=== PATIENT | male | born 1940 | race Caucasian/White ===

== ENCOUNTER 2018-02-14 17:49 | Emergency (ER) | payer MEDICARE, BC ==
[2018-02-14] MEDS ORDERED: Sodium Chloride 0.9% 1,000 ML IV SCH (18:15)
[2018-02-14] MEDS ORDERED: cefTRIAXone 1 GM in Sodium Chloride 0.9% 50 ML IV ONE (18:34)
--- NOTE | 2018-02-14 18:40 | EDM.PDOC ---
ED HPI GENERAL MEDICAL PROBLEM - General Chief Complaint: General Stated Complaint: NAUSEA AND VOMITING Time Seen by Provider: 02/14/18 18:20 Source of Information: Reports: Patient, Family, RN History Limitations: Reports: No Limitations - History of Present Illness INITIAL COMMENTS - FREE TEXT/NARRATIVE: 78 yr male presents with cough, sore throat, abdominal pain, diarrhea and not eating for about 2 weeks. States [place] He is from [place] and is here fishing with his brothers for about 2 weeks. States he hasn't taken his medication for about 2 weeks. He does take Plavix, ASA and rosuvastatin, history of 5 heart attack and stents. Pt is sleepy but alert at times and oriented. Brothers state he has been good on/off for the last few days. EKG shows sinus rhythm w premature supraventricular complexes with occasional premature ventricular complexes in bigeminy, Left BBB, left axis deviation. Heart rate on admit in 30's. ED ROS GENERAL - Review of Systems Review Of Systems: See Below Constitutional: Reports: Fever, Malaise HEENT: Reports: Eye Discharge, Throat Pain Respiratory: Reports: Cough Cardiovascular: Denies: Chest Pain, Edema GI/Abdominal: Reports: Abdominal Pain, Diarrhea, Vomiting Musculoskeletal: Reports: No Symptoms Skin: Reports: No Symptoms Neurological: Reports: No Symptoms Psychiatric: Reports: No Symptoms ED EXAM, GENERAL - Physical Exam Exam: See Below Exam Limited By: Altered Mental Status (some confusion) General Appearance: Alert, WD/WN, Mild Distress, Other (weak) Eye Exam: Bilateral Eye: PERRL (yellow exudate to lashes) Ears: Hearing Loss Nose: Normal Inspection Throat/Mouth: Normal Inspection, Normal Lips, Normal Voice, No Airway Compromise Head: Atraumatic, Normocephalic Neck: Normal Inspection, Supple, Non-Tender Respiratory/Chest: Decreased Breath Sounds, Crackles Cardiovascular: No Edema, Bradycardia, Extra Beats, Other (palpable heart rate irregular,bradycardia) GI/Abdominal: Soft, Non-Tender Back Exam: Muscle Spasm. No: Paraspinal Tenderness, Vertebral Tenderness Extremities: Normal Inspection, Non-Tender, No Pedal Edema Neurological: Slow to Respond Skin Exam: Warm, Dry, Normal Color EKG INTERPRETATION EKG Date: 02/14/18 Rhythm: NSR Rate (Beats/Min): 70 [place]: LAD-Left [place] Deviation QRS: LBBB Comparison: NA - No Prior EKG Course - Orders/Labs/Meds Orders: Active Orders 24 hr Category Date Time Status EKG Documentation Completion [RC] ASDIRECTED Care 02/14/18 18:15 Ordered Chest 1V Frontal [CR] Stat Exams 02/14/18 18:15 Ordered CULTURE BLOOD [BC] Stat Lab 02/14/18 18:13 Ordered CULTURE BLOOD [BC] Stat Lab 02/14/18 18:16 Ordered Sodium Chloride 0.9% @ 125 MLS/HR (1000ml) Med 02/14/18 18:15 Ordered Sodium Chloride 0.9% [Normal Saline] 1,000 ml IV ASDIRECTED Medication Orders Sodium Chloride (Normal Saline) 1,000 mls @ 125 mls/hr IV ASDIRECTED KIMBERLY Last Admin: 02/14/18 18:15 Dose: 125 mls/hr Labs: Laboratory Tests 02/14/18 02/14/18 02/14/18 Range/Units 18:15 18:15 18:15 WBC 12.7 H (4.0-11.0) K/uL RBC 3.99 L (4.50-6.50) M/uL Hgb 12.3 L (13.0-18.0) g/dL Hct 36.8 L (40.0-54.0) % MCV 92 (76-96) fL MCH 30.8 (27.0-32.0) pg MCHC 33.4 (31.0-35.0) g/dL RDW 12.4 (11.0-16.0) % Plt Count 130 L (150-400) K/uL MPV 10.9 H (6.0-10.0) fL Neut % (Auto) 65.6 (45.0-70.0) % Lymph % (Auto) 20.1 (20.0-40.0) % [place] % (Auto) 14.1 H (3.0-10.0) % Eos % (Auto) 0.0 L (1.0-5.0) % Baso % (Auto) 0.2 (0.0-0.5) % Neut # (Auto) 8.36 H (2.00-7.50) K/uL Lymph # (Auto) 2.56 (1.50-4.00) K/uL [place] # (Auto) 1.80 H (0.20-0.80) K/uL Eos # (Auto) 0.00 L (0.04-0.40) K/uL Baso # (Auto) 0.02 (0.02-0.10) K/uL Sodium 137 (136-145) mmol/L Potassium 3.8 (3.5-5.1) mmol/L Chloride 101 (98-107) mmol/L Carbon Dioxide 23.1 (21.0-32.0) mmol/L Anion Gap 16.7 H (5.0-15.0) mmol/L BUN 33 H (8-26) mg/dL Creatinine 2.50 H (0.70-1.30) mg/dL Est Cr Clr Drug Dosing TNP Estimated GFR (MDRD) 25 L (>60) MLS/MIN BUN/Creatinine Ratio 13.2 (6-25) Glucose 145 H (74-100) mg/dL Lactic Acid (0.90-1.70) mmol/L Calcium 8.8 (8.5-10.1) mg/dL Total Bilirubin 1.4 H (0.0-1.0) mg/dL AST 41 H (15-37) U/L ALT 24 (12-78) U/L Alkaline Phosphatase 75 (46-116) U/L Troponin I (0.000-0.060) ng/mL B-Natriuretic Peptide (0-450) pg/mL Total Protein 7.8 (6.4-8.2) g/dL Albumin 3.1 L (3.4-5.0) g/dL Globulin 4.7 H (2.2-4.2) g/dL Albumin/Globulin Ratio 0.7 L (0.8-2.0) Urine Color Yellow Urine Appearance Cloudy (CLEAR) Urine pH 5.5 (5.0-8.0) Ur Specific [place] 1.025 (1.003-1.030) Urine Protein >=300 H (NEGATIVE) mg/dL Urine Glucose (UA) Negative (NEGATIVE) mg/dL Urine Ketones Negative (NEGATIVE) mg/dL Urine Occult Blood Moderate H (NEGATIVE) Urine Nitrite Negative (NEGATIVE) Urine Bilirubin Small H (NEGATIVE) Urine Urobilinogen 0.2 (0.2-1.0) E.U./dL Ur Leukocyte Esterase Negative (NEGATIVE) Urine RBC 5-10 H /HPF Urine WBC 0-5 H /HPF Ur Squamous Epith Cells Moderate /HPF Urine Bacteria Few /HPF Hyaline Casts Few /HPF 02/14/18 02/14/18 02/14/18 Range/Units 18:15 18:15 18:15 WBC (4.0-11.0) K/uL RBC (4.50-6.50) M/uL Hgb (13.0-18.0) g/dL Hct (40.0-54.0) % MCV (76-96) fL MCH (27.0-32.0) pg MCHC (31.0-35.0) g/dL RDW (11.0-16.0) % Plt Count (150-400) K/uL MPV (6.0-10.0) fL Neut % (Auto) (45.0-70.0) % Lymph % (Auto) (20.0-40.0) % [place] % (Auto) (3.0-10.0) % Eos % (Auto) (1.0-5.0) % Baso % (Auto) (0.0-0.5) % Neut # (Auto) (2.00-7.50) K/uL Lymph # (Auto) (1.50-4.00) K/uL [place] # (Auto) (0.20-0.80) K/uL Eos # (Auto) (0.04-0.40) K/uL Baso # (Auto) (0.02-0.10) K/uL Sodium (136-145) mmol/L Potassium (3.5-5.1) mmol/L Chloride (98-107) mmol/L Carbon Dioxide (21.0-32.0) mmol/L Anion Gap (5.0-15.0) mmol/L BUN (8-26) mg/dL Creatinine (0.70-1.30) mg/dL Est Cr Clr Drug Dosing Estimated GFR (MDRD) (>60) MLS/MIN BUN/Creatinine Ratio (6-25) Glucose (74-100) mg/dL Lactic Acid 1.17 (0.90-1.70) mmol/L Calcium (8.5-10.1) mg/dL Total Bilirubin (0.0-1.0) mg/dL AST (15-37) U/L ALT (12-78) U/L Alkaline Phosphatase (46-116) U/L Troponin I < 0.017 (0.000-0.060) ng/mL B-Natriuretic Peptide 2796 H (0-450) pg/mL Total Protein (6.4-8.2) g/dL Albumin (3.4-5.0) g/dL Globulin (2.2-4.2) g/dL Albumin/Globulin Ratio (0.8-2.0) Urine Color Urine Appearance (CLEAR) Urine pH (5.0-8.0) Ur Specific [place] (1.003-1.030) Urine Protein (NEGATIVE) mg/dL Urine Glucose (UA) (NEGATIVE) mg/dL Urine Ketones (NEGATIVE) mg/dL Urine Occult Blood (NEGATIVE) Urine Nitrite (NEGATIVE) Urine Bilirubin (NEGATIVE) Urine Urobilinogen (0.2-1.0) E.U./dL Ur Leukocyte Esterase (NEGATIVE) Urine RBC /HPF Urine WBC /HPF Ur Squamous Epith Cells /HPF Urine Bacteria /HPF Hyaline Casts /HPF Meds: Medications Generic Name Dose Route Start Last Admin Trade Name Freq PRN Reason Stop Dose Admin Sodium Chloride 1,000 mls @ 125 mls/hr 02/14/18 18:15 02/14/18 18:15 Normal Saline IV 125 mls/hr ASDIRECTED KIMBERLY Administration Discontinued Medications Generic Name Dose Route Start Last Admin Trade Name Freq PRN Reason Stop Dose Admin Ceftriaxone Sodium Confirm 02/14/18 18:52 Rocephin Administered 02/14/18 18:53 Dose 1 gm .ROUTE .STK-MED ONE Ceftriaxone Sodium 1 gm/ 50 mls @ 200 mls/hr 02/14/18 18:34 02/14/18 18:40 Sodium Chloride IV 02/14/18 18:48 200 mls/hr ONETIME ONE Administration - Re-Assessments/Exams Free Text/Narrative Re-Assessment/Exam: 02/14/18 19:14 Troponins are negative. BNP is elevated and crackles to bases of lungs. Reviewed with pt. Dr Bernarda MD here to assess pt. Heart rate 30-40 and pt states he usually has a regular heart rate. IV bolus given and Rocephin 1 gm IV given with this elevated WBC and temperature. With this unstable heart rate, will transfer to [facility] for evaluation. Discussed transport with Dr Pandey in [facility] and he is accepting of pt. Discussed transfer with pt and his brothers. States has Parkinson's disease and he does have one child, that the brothers have been in contact with. Will transport air ambulance with this irregular, erratic heart rate, elevated BNP, and leukocytosis. 02/14/18 19:55 Pt is alert and feeling some better after bolus of fluids. Pt more talkative now. Heart rate continues with 30-40 palpable and 70-80 on secured entrance monitor. BP stable 120/50. Occasional cough persists. No peripheral edema noted. Transport by [facility] to [facility]. Departure - Departure Time of Disposition: 19:55 Disposition: DC/Tfer to [facility] 02 Condition: Fair Clinical Impression: CHF, Congestive heart failure, Bradycardia, Leukocytosis, Irregular heart rate - Discharge Information *PRESCRIPTION DRUG MONITORING PROGRAM REVIEWED*: Not Applicable *COPY OF PRESCRIPTION DRUG MONITORING REPORT IN PATIENT BILLY: Not Applicable Referrals: PCP,None [Primary Care Provider] - Forms: ED Department Discharge - My Orders Last 24 Hours: My Active Orders 02/14/18 18:13 CULTURE BLOOD [BC] Stat 02/14/18 18:15 EKG Documentation Completion [RC] ASDIRECTED Chest 1V Frontal [CR] Stat Sodium Chloride 0.9% @ 125 MLS/HR (1000ml) Sodium Chloride 0.9% [Normal Saline] 1,000 ml IV ASDIRECTED 02/14/18 18:16 CULTURE BLOOD [BC] Stat - Assessment/Plan Last 24 Hours: My Active Orders 02/14/18 18:13 CULTURE BLOOD [BC] Stat 02/14/18 18:15 EKG Documentation Completion [RC] ASDIRECTED Chest 1V Frontal [CR] Stat Sodium Chloride 0.9% @ 125 MLS/HR (1000ml) Sodium Chloride 0.9% [Normal Saline] 1,000 ml IV ASDIRECTED 02/14/18 18:16 CULTURE BLOOD [BC] Stat
[2018-02-14] MEDS ORDERED: cefTRIAXone 1 GM Vial ONE (18:52)
--- NOTE | 2018-02-15 08:03 | CR ---
DATE OF SERVICE: 02/14/18 CLINICAL DATA: Cough. AP PORTABLE CHEST: No priors. The patient has taken a poor inspiration. The heart size is within normal limits. Lungs are clear. No pneumothorax. No pleural effusions. No evidence of acute intrathoracic disease. [id number] [facility]
== END 2018-02-14 20:00 ==
LOC: LB.ED 17:49
DX: I50.9 Heart failure, unspecified (principal); R00.1 Bradycardia, unspecified; Z79.01 Long term (current) use of anticoagulants; Z79.82 Long term (current) use of aspirin; Z79.899 Other long term (current) drug therapy
CPT/HCPCS: 36415; 71045; 80053; 81001; 83605; 83880; 84484; 85025; 93005; 96374; 99284-25; 99285; J0696; J7030; J7050